=== PATIENT | female | born 2005 | race Caucasian/White ===

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

== ENCOUNTER 2025-01-06 12:14 | Emergency (ER) | payer OTHER, SELFPAY ==
[2025-01-06 12:18] VITALS: BP 126/75; PULSE 88; TEMP 36.7; O2SAT 99; BMI 21.0
--- NOTE | 2025-01-06 12:52 | ED.GENADUL1 ---
HPI HPI - General Adult General Chief complaint: Abdominal Pain Stated complaint: ABDOMINAL CRAMPING - STD CHECK Time Seen by Provider: 01/06/25 12:22 Source: patient Mode of arrival: walk-in History of Present Illness HPI narrative: 19-year-old female presents for bumps near her vagina. She has had these for a few days and they are not painful. At no point did she have any pain. She does not have any vaginal discharge. She was worried it might be herpes. No fever or vomiting. She always has abdominal pain and that is no different. She has an IUD. Related Data Home Medications ?Medication ?Instructions ?Recorded ?Confirmed citalopram 10 mg tablet 10 mg PO QDAY 01/01/23 07/06/24 diclofenac sodium 75 mg 75 mg PO Q12H 01/01/23 01/01/23 tablet,delayed release doxepin 10 mg capsule 10 mg PO .q three times a day PRN 01/01/23 07/06/24 anxiety hyoscyamine sulfate 0.125 mg 0.125 mg sublingual Q8H 01/01/23 01/01/23 sublingual tablet Previous Rx's ?Medication ?Instructions ?Recorded clindamycin HCl 300 mg capsule 300 mg PO Q8H 10 days #30 caps 01/01/23 famotidine 20 mg tablet (Pepcid) 20 mg PO BID #10 tabs 01/01/23 prednisone 20 mg tablet 40 mg (2 x 20 mg) PO DAILY 3 days 01/01/23 #6 tabs clindamycin HCl 300 mg capsule 300 mg PO BID 7 days #14 caps 03/10/23 ondansetron 4 mg disintegrating 4 mg PO Q6H PRN nausea and 01/10/24 tablet vomiting #12 tabs polyethylene glycol 3350 17 17 g PO DAILY PRN constipation 01/10/24 gram/dose oral powder (Miralax) #119 grams hydroxyzine pamoate 25 mg capsule 25 mg PO Q6H PRN anxiety #12 caps 07/06/24 (Vistaril) Allergies Allergy/AdvReac Type Severity Reaction Status Date / Time latex Allergy Intermediate Hives Verified 01/10/24 18:06 Penicillins AdvReac Severe Anaphylaxis Verified 01/10/24 18:06 Opioid HPI Opioid Management Most Recent Opioid Data: Last Pain Scale 7 07/23/23, 13:25 Ur Phencyclidine Scrn, (NEGATIVE) Negative 09/21/23, 01:57 Review of Systems ROS Narrative A ten point review of systems is negative except as noted above. PFSH PFSH Social History Smoking status: Never smoker Little interest or pleasure in doing things: not at all Feeling down, depressed, or hopeless: not at all Exam Narrative Exam Narrative: Nurses note and vital signs reviewed and patient is not hypoxic. General: The patient appears well and in no apparent distress. Patient is resting comfortably on cart. Skin: Warm, dry, no pallor noted. Head: Normocephalic, atraumatic Eye: Normal conjunctiva, no drainage Ears, Nose, Mouth, and Throat: oral mucosa is moist. Nares patent. Cardiovascular: Regular Rate and Rhythm Respiratory: Patient is in no distress, no accessory muscle use, lungs are clear to auscultation, no wheezing, rales or rhonchi Back: non-tender GI: Soft and nontender : She has no abscess or areas of erythema. She has several 1 to 2 mm in diameter slightly pale raised areas particularly on the left side of the genital region. She has a few on the right as well. They do not seem to be painful. There is no open area or drainage. Musculoskeletal: The patient has no evidence of calf tenderness, no pitting edema, symmetrical pulses noted bilaterally Neurological: A&O, normal speech Psychiatric: Cooperative Constitutional Vital Signs, click to edit/add: Last Vital Signs Temp 98.0 F 01/06/25 12:18 Pulse 88 01/06/25 12:18 Resp 16 01/06/25 12:18 BP 126/75 01/06/25 12:18 Pulse Ox 99 01/06/25 12:18 O2 Del Method Room Air 01/06/25 12:18 Course Vital Signs Vital signs: Vital Signs Temperature 98.0 F 01/06/25 12:18 Pulse Rate 88 01/06/25 12:18 Respiratory Rate 16 01/06/25 12:18 Blood Pressure 126/75 01/06/25 12:18 Pulse Oximetry 99 01/06/25 12:18 Oxygen Delivery Method Room Air 01/06/25 12:18 Temperature 98.0 F 01/06/25 12:18 Pulse Rate 88 01/06/25 12:18 Respiratory Rate 16 01/06/25 12:18 Blood Pressure 126/75 01/06/25 12:18 Pulse Oximetry 99 01/06/25 12:18 Oxygen Delivery Method Room Air 01/06/25 12:18 Medical Decision Making MDM Narrative Medical decision making narrative: My clinical impression is that the patient has molluscum contagiosum and this was discussed with her thoroughly. I do not suspect herpes with open culture is pending. She has had no pain at all. GC and Chlamydia test are pending as well. If these were to be positive she would need to be contacted. Treatment diagnosis and follow-up were discussed with the patient. Differential Diagnosis Differential Diagnosis: Rash, molluscum contagiosum, herpes Lab Data Lab results reviewed: Yes I reviewed the patient's lab results Labs: Lab Results 01/06/25 Range/Units 12:23 Urine Color Lt. yellow (YELLOW) Urine Clarity Clear (CLEAR) Urine pH 6.0 (5.0-9.0) Ur Specific [place] <=1.005 A (1.005-1.025) Urine Protein Negative (NEG/TRACE) mg/dL Urine Glucose (UA) Negative (NEGATIVE) mg/dL Urine Ketones Negative (NEGATIVE) mg/dL Urine Occult Blood Negative (NEGATIVE) Urine Nitrite Negative (NEGATIVE) Urine Bilirubin Negative (NEGATIVE) Urine Urobilinogen 0.2 (0.2-1.0) EU/dL Ur Leukocyte Esterase Negative (NEGATIVE) Urine RBC 0-2 (0-2) #/HPF Urine WBC 0-2 A (NONE SEEN) #/HPF Ur Squamous Epith Cells Few A (NONE/RARE) #/LPF Urine Crystals None seen (None Seen) #/HPF Urine Bacteria Trace A (NONE SEEN) #/HPF Urine Casts None seen (NONE SEEN) #/LPF Urine Mucus None seen (NONE SEEN) Urine HCG, Qual Negative (NEGATIVE) Discharge Plan Discharge Chief Complaint: Abdominal Pain Clinical Impression: Molluscum contagiosum Patient Disposition: Home, Self-Care Time of Disposition Decision: 13:39 Condition: Good Mode of Transportation: Private Vehicle Prescriptions / Home Meds: No Action citalopram 10 mg tablet 10 mg PO QDAY diclofenac sodium 75 mg tablet,delayed release (DR/EC) 75 mg PO Q12H doxepin 10 mg capsule 10 mg PO .q three times a day PRN (Reason: anxiety) hyoscyamine sulfate 0.125 mg tablet, sublingual 0.125 mg sublingual Q8H clindamycin HCl 300 mg capsule 300 mg PO Q8H 10 Days Qty: 30 0RF famotidine [Pepcid] 20 mg tablet 20 mg PO BID Qty: 10 0RF prednisone 20 mg tablet 40 mg PO DAILY 3 Days Qty: 6 0RF clindamycin HCl 300 mg capsule 300 mg PO BID 7 Days Qty: 14 0RF ondansetron 4 mg tablet,disintegrating 4 mg PO Q6H PRN (Reason: nausea and vomiting) Qty: 12 0RF polyethylene glycol 3350 [Miralax] 17 gram/dose powder 17 g PO DAILY PRN (Reason: constipation) Qty: 119 0RF hydroxyzine pamoate [Vistaril] 25 mg capsule 25 mg PO Q6H PRN (Reason: anxiety) Qty: 12 0RF Print Language: Croatian Instructions: Molluscum Contagiosum (ED) Referrals: Tito Hassan MD [Primary Care Provider, Family Practice] - 1 week
[2025-01-06 12:53] LABS: Bilirubin Urine NEGATIVE (NEGATIVE); Blood Urine NEGATIVE (NEGATIVE); Clarity Urine CLEAR (CLEAR); Color Urine LT. YELLOW (YELLOW); Glucose Urine UA NEGATIVE (NEGATIVE); Ketones Urine NEGATIVE (NEGATIVE); Leukocyte Esterase Urine NEGATIVE (NEGATIVE); Nitrite Urine NEGATIVE (NEGATIVE); Protein Urine NEGATIVE (NEG/TRACE); Specific Gravity Urine <=1.005 (1.005-1.025); Urobilinogen Urine 0.2 EU/dL (0.2-1.0)
[2025-01-06 12:55] LABS: HCG Qualitative Urine* NEGATIVE (NEGATIVE); Internal Control Within Normal Limits
[2025-01-06 13:09] LABS: Bacteria Urine TRACE #/HPF (NONE SEEN); Cast Seen? NONE SEEN #/LPF (NONE SEEN); Crystals Seen? None Seen #/HPF (None Seen); Mucus Urine NONE SEEN (NONE SEEN); RBC Urine 0-2 #/HPF (0-2); Squamous Epithelial Cell Urine FEW #/LPF (NONE/RARE); WBC Urine 0-2 #/HPF (NONE SEEN)
[2025-01-06 14:15] VITALS: PULSE 87; O2SAT 99
[2025-01-07 20:08] LABS: Neisseria gonorrhoeae, NAA Negative (Negative)
[2025-01-08 06:09] LABS: HSV-1 DNA Negative (Negative); HSV-2 DNA Negative (Negative)
== END 2025-01-06 14:15 | disposition home or self-care (01) ==
PROVIDERS: Emergency Provider Emergency Medicine; PCP Family Medicine
DX: B08.1 Molluscum contagiosum (principal)
CPT/HCPCS: 81001; 84703; 87491; 87529; 87591; 99285